=== PATIENT | female | born 1990 ===

== ENCOUNTER 2020-04-13 15:22 | Outpatient (REF) | payer OTHER, SELFPAY | END 2020-04-13 15:23 | disposition home or self-care (01) | LOC: HO.LAB 15:22 | PROVIDERS: Visit Provider Internal Medicine | DX: Z20.828 Contact with and (suspected) exposure to other viral communicable diseases (principal) | CPT/HCPCS: C9803; U0003 ==

== ENCOUNTER 2020-05-24 10:56 | Emergency (ER) | payer OTHER, SELFPAY ==
[2020-05-24 11:11] VITALS: BP 107/64; PULSE 83; RESP 18; TEMP 36.3; O2SAT 98; BMI 29.7
--- NOTE | 2020-05-24 11:48 | ED_ITS ---
HPI - Extremity Injury (Lower) General Chief Complaint: Extremity Injury, Lower Stated Complaint: leg pain and a personal issue Time Seen by Provider: 05/24/20 11:37 Source: patient Mode of arrival: ambulatory Limitations: no limitations History of Present Illness HPI Narrative: 29-year-old female here with right lower extremity pain, swelling, redness. The patient denies any injury or trauma. She tells me she w hunter up yesterday morning and noticed that her right lower extremity was red, painful and swollen. No fevers or chills. Also complaining of a bump to the vagina which is painful and swollen. No vaginal discharge, abdominal cramping or urinary symptoms. MD complaint: other (Leg pain) Onset (ago): day(s) (Two days) Severity: mild Relieving factors: nothing Exacerbating factors: nothing Other symptoms: none Related Data Previous Rx's Medication Instructions Recorded doxycycline monohydrate 100 mg PO BID #21 cap 05/24/20 ibuprofen 600 mg PO TID PRN #20 tab 05/24/20 Allergies Allergy/AdvReac Type Severity Reaction Status Date / Time dextroamphetamine Allergy Unknown THROAT Verified 05/24/20 11:10 [From ADDERALL] CLOSES/SWELLING methylphenidate Allergy Unknown SWELLING Verified 05/24/20 11:10 [From CONCERTA] From ADDERALL Allergy Unknown THROAT Uncoded 02/04/20 16:37 CLOSES/SWELLING From RITALIN Allergy Unknown THROAT Uncoded 02/04/20 16:37 CLOSES/SWELLING PICKLES Allergy Unknown UNKNOWN Uncoded 02/04/20 16:37 Review of Systems Review of Systems: Yes all other systems are reviewed and are negative Constitutional: Constitutional: Reports no additional constitutional complaints, Denies body ache(s), Denies chills, Denies fever(s), Denies headache(s) and Denies weakness Eyes: Eyes: Reports no additional eye complaints and Denies change in vision ENT: Reports system reviewed and no additional complaints, except as documented, Denies dizziness, Denies headache(s), Denies nasal congestion, Denies nasal discharge and Denies neck pain Cardiovascular: Cardiovascular: Reports no additional cardiovascular complaints, Denies chest pain, Denies leg edema and Denies dyspnea Respiratory: Respiratory: Reports no additional respiratory complaints, Denies cough and Denies dyspnea Gastrointestinal: Gastrointestinal: Reports no additional gastrointestinal complaints, Denies abdominal pain, Denies diarrhea, Denies nausea and Denies vomiting Genitourinary: Genitourinary: Reports no additional female genitourinary complaints and Denies urinary incontinence Comments: Vaginal lesion Musculoskeletal: Musculoskeletal: Reports no additional musculoskeletal complaints, Denies back pain, Reports arthralgias, Denies joint swelling, Denies neck pain, Denies numbness and Denies tingling Integumentary/Breasts: Skin/Breast: Reports system reviewed and no additional complaints, except as docu and Denies rash Neurologic: Reports system reviewed and no additional complaints, except as documented, Denies Abnormal speech present, Denies dizziness, Denies headache(s), Denies numbness, Denies tingling and Denies weakness FOR[facility]LY [facility], [facility] Past Medical History Attestation statement: The following information was validated with the patient. Source: old records reviewed and nursing notes reviewed Surgical History Hx of appendectomy Social History Social History Advance Directives: No Advance Directives Information Provided: Yes Physical Exam Vital Signs: Vital Signs: Last Vital Signs Temp 97.3 F 05/24/20 11:11 Pulse 83 05/24/20 11:11 Resp 18 05/24/20 11:11 BP 107/64 05/24/20 11:11 Pulse Ox 98 05/24/20 11:11 Body Mass Index 29.7 Const: General: cooperative, healthy appearing, comfortable and no acute distress Orientation/consciousness: patient oriented x3 Limitations: no limitations HENMT: Head: Yes normal to inspection Ears: hearing grossly normal bilaterally General nose exam: Normal external nose present Face and sinus: Yes normal facial exam Mouth: Normal oral and palatal mucosa present Throat: Yes posterior oropharynx normal Eyes: General: appearance normal, both eyes and all related structures Pupils: Equal, round and reactive pupils present Neck: Neck: Yes normal visual inspection Chest: Chest palpation & inspection: normal inspection of the chest Resp: Effort & Inspection: normal respiratory effort Auscultation: clear to auscultation bilaterally Cardio: Rate: regular rate Rhythm: regular rhythm Peripheral pulses: Peripheral pulses 2+ throughout GI: Inspection: Yes normal to inspection Palpation (GI): Soft to palpation and nontender Auscultation: normal bowel sounds : Other: Over the left mons pubis there is a small raised lesion which is fluctuant and painful less than 2 mm. There is some pointing. Back/Spine/Pelvis: Thoracic/Lumbar Spine: thoracic and lumbar spine normal to inspection Skin: General skin exam: no rashes or lesions noted Neuro: General: patient oriented x3, no focal motor deficits and normal sensation to monofilament Cranial nerves: Yes Equal, round and reactive pupils present Cognition (Neuro): normal cognition Speech: No Abnormal speech present Gait exam (Neuro): Normal gait present Motor exam (neuro): 5/5 motor strength present throughout Extrem: Other: To the distal anterior right lower extremity there is an area of erythema with warmth and tenderness. It is not circumferential. The patient also has tenderness over the right posterior calf with some mild swelling. Neurovascular intact distally. Normal cap refill distally. General: Yes normal to inspection Course Course Course Narrative: Right lower extremity swelling, redness, warmth x2 days. No injury or trauma. Will tenderness over the right calf as well. Will check ultrasound to rule out DVT and x-rays. 1340-ultrasound negative for DVT. X-ray showed no acute abnormality. Likely some mild cellulitis. Discussed placing the patient on a short course of antibiotics. She also has ingrown hair. We discussed warm compresses and that the antibiotics will help. No need I and D at this point. Reviewed worrisome signs and symptoms and when to return to the emergency department. Comfortable discharge home. MDM - Extremity Injury (Lower) Medical Records Attestation: I reviewed the patient's medical records. Lab Data Attestation: I reviewed the patient's lab results. Imaging Data tibia/fibula: Attestation: I personally reviewed and interpreted this imaging study as follows: Radiologist's impression: EXAMINATION: XR TIBIA AND FIBULA, RIGHT CLINICAL INFORMATION: Swelling and pain. Rule out fracture. COMPARISON: None TECHNIQUE: AP and lateral views of the right tibia and fibula were obtained. FINDINGS: The bones and soft tissues are normal. No fracture. No osseous lesions. XR/XR tibia fibula RT 2V IMPRESSION: Normal right tibia and fibula. Discharge Plan Discharge Clinical Impression: Ingrown hair Cellulitis Qualifiers: Site of cellulitis: extremity Site of cellulitis of extremity: lower extremity Laterality: right Qualified Code(s): L03.115 - Cellulitis of right lower limb Patient Disposition: Home, Self-Care Instructions: Cellulitis (ED), Abscess (ED) Additional Instructions: Warm compresses 4 times daily Prescriptions: New doxycycline monohydrate 100 mg capsule 100 mg PO BID Qty: 21 RF: 0 ibuprofen 600 mg tablet 600 mg PO TID PRN (Reason: fever or pain) Qty: 20 RF: 0 Referrals: Physician,None [Primary Care Provider] - 2 days Stand Alone Forms: Work/School Release Interventions: ED Discharge Assessment Last Done: 05/24/20 13:33 Discharge Date/Time: 05/24/20 13:33
--- NOTE | 2020-05-24 11:48 | US_ITS ---
EXAMINATION: US VENOUS ULTRASOUND WITH DOPPLER LOWER EXTREMITY, RIGHT CLINICAL INFORMATION: Redness, pain and swelling COMPARISON: None TECHNIQUE: Ultrasound of the deep veins is performed from the hip to the calf with compression sonography and color and pulse Doppler assessment. Spectral analysis with color-flow imaging is performed. FINDINGS: There is normal venous compression and respiratory variation and augmented flow. The visualized common femoral vein, superficial femoral vein, profunda femoral vein, popliteal vein, and the trifurcation region shows no evidence of deep venous thrombosis. There is no significant popliteal fossa cyst. US/US venous duplex LE RT IMPRESSION: No DVT demonstrated in the right lower extremity.
== END 2020-05-24 13:33 | disposition home or self-care (01) ==
PROVIDERS: Emergency Provider Emergency Medicine
DX: M79.661 Pain in right lower leg (principal); L73.1 Pseudofolliculitis barbae; L03.115 Cellulitis of right lower limb
CPT/HCPCS: 73590; 93971; 99283

== ENCOUNTER 2020-06-10 09:16 | Outpatient (REF) | payer OTHER, SELFPAY | END 2020-06-10 09:17 | disposition home or self-care (01) | LOC: HO.LAB 09:16 | PROVIDERS: Visit Provider Internal Medicine | DX: Z20.822 Contact with and (suspected) exposure to COVID-19 (principal) | CPT/HCPCS: 36415; C9803; U0003 ==

== ENCOUNTER 2020-07-20 08:04 | Emergency (ER) | payer OTHER, SELFPAY ==
[2020-07-20 08:07] VITALS: BP 133/67; PULSE 76; RESP 16; TEMP 37.2; O2SAT 100; BMI 31.3
--- NOTE | 2020-07-20 08:29 | ED_ITS ---
HPI - URI/Sore Throat General Chief Complaint: Upper Respiratory Symptoms Stated Complaint: flu like symptoms Time Seen by Provider: 07/20/20 08:29 Source: patient Mode of arrival: ambulatory Limitations: no limitations History of Present Illness MD elicited complaint: fever and other (body aches) Onset (ago): day(s) (4) Consistency: constant Severity: mild Description of mucous: clear Able to tolerate fluids by mouth: Yes Exacerbating factors: nothing Relieving factors: nothing Context: sick contacts (went to the [place]) Associated symptoms: fever, chills, myalgias and headache Treatments prior to arrival: none Related Data Previous Rx's Medication Instructions Recorded doxycycline monohydrate 100 mg PO BID #21 cap 05/24/20 ibuprofen 600 mg PO TID PRN #20 tab 05/24/20 Allergies Allergy/AdvReac Type Severity Reaction Status Date / Time dextroamphetamine Allergy Unknown THROAT Verified 05/24/20 11:10 [From ADDERALL] CLOSES/SWELLING methylphenidate Allergy Unknown SWELLING Verified 05/24/20 11:10 [From CONCERTA] From ADDERALL Allergy Unknown THROAT Uncoded 02/04/20 16:37 CLOSES/SWELLING From RITALIN Allergy Unknown THROAT Uncoded 02/04/20 16:37 CLOSES/SWELLING PICKLES Allergy Unknown UNKNOWN Uncoded 02/04/20 16:37 Review of Systems Review of Systems: Constitutional : positive Fever, positive Chills, positive fatigue, positive Malaise ENT/Mouth : no sore throat, positive runny nose Eyes: No Discharge Cardiovascular : No Chest Pain, No SOB Respiratory : No Cough, No Sputum Gastrointestinal : No Nausea, No Vomiting, No Diarrhea Genitourinary : No Dysuria, No Urinary Frequency Musculoskeletal : positive Myalgia Skin : No rash Neuro : No Headache PMFSH Past Medical History Attestation statement: The following information was validated with the patient. Medical History (Updated 07/20/20 @ 08:38 by Micaela Burrell DO) No active medical problems Surgical History Hx of appendectomy Social History Social History (Updated 07/20/20 @ 08:38 by Micaela Burrell DO) Smoking Status: Current some day smoker Advance Directives: No Advance Directives Information Provided: No Physical Exam Vital Signs: Vital Signs: Last Vital Signs Temp 99 F 03/03/21 08:07 Pulse 76 07/20/20 08:07 Resp 16 07/20/20 08:07 BP 133/67 07/20/20 08:07 Pulse Ox 100 07/20/20 08:07 Body Mass Index 31.3 Appearance: Alert. Oriented X3. No acute distress. Eyes: Pupils equal, round and reactive to light. ENT: Pharynx normal. Neck: Normal inspection. Neck supple. CVS: Normal heart rate and rhythm. Pulses normal. Respiratory: No respiratory distress. Breath sounds normal. Abdomen: Soft and nontender. Skin: Skin warm and dry. Normal skin color. Normal skin turgor. Extremities: No lower extremity edema. Neuro: Oriented X 3. No motor deficit. No sensory deficit. Course Course Course Narrative: patient made awareof test result MDM - URI/Sore Throat MDM Narrative Medical decision making narrative: 29 yo female not toxic, clear lungs, presents with viral syndrome no hypoxia, will test for COVID and given precautions to return. Lab Data Labs: Lab Results 07/20/20 Range/Units 08:28 Coronavirus (PCR) NEGATIVE (Negative) Influenza Type A (PCR) NEGATIVE (Negative) Influenza Type B (PCR) NEGATIVE (Negative) RSV RNA Qual (PCR) NEGATIVE (Negative) Discharge Plan Discharge Clinical Impression: Viral infection Patient Disposition: Home, Self-Care Instructions: Viral Syndrome (ED) Additional Instructions: return to ED for any worsening symptoms or concerns IF YOU CANNOT WALK TO YOUR BATHROOM BECAUSE YOU ARE SO SHORT OF BREATH PLEASE RETURN. Prescriptions: No Action doxycycline monohydrate 100 mg capsule 100 mg PO BID Qty: 21 RF: 0 ibuprofen 600 mg tablet 600 mg PO TID PRN (Reason: fever or pain) Qty: 20 RF: 0 Stand Alone Forms: Work/School Release Interventions: ED Discharge Assessment Last Done: 07/20/20 08:51 Discharge Date/Time: 07/20/20 08:53
[2020-07-20 09:24] LABS: Influenza A PCR NEGATIVE (Negative); Influenza B PCR NEGATIVE (Negative); Resp Syncy Virus RNA Qual PCR NEGATIVE (Negative); SARS COV2 PCR INHOUSE NEGATIVE (Negative)
== END 2020-07-20 08:53 | disposition home or self-care (01) ==
PROVIDERS: Emergency Provider Emergency Medicine
DX: B34.9 Viral infection, unspecified (principal); Z20.822 Contact with and (suspected) exposure to COVID-19; F17.200 Nicotine dependence, unspecified, uncomplicated
CPT/HCPCS: 0241U; 36415; 99282; 99283

== ENCOUNTER 2020-08-17 10:30 | Outpatient (REF) | payer OTHER, SELFPAY ==
[2020-08-17 15:36] LABS: CT PCR NOT DETECTED (Not Detect.); NG PCR NOT DETECTED (Not Detect.)
[2020-08-18 14:30] LABS: BV Int Neg Control Negative (Negative); BV Int Pos Control Positive (Positive)
== END 2020-08-17 10:31 | disposition home or self-care (01) ==
LOC: HO.LAB 10:30
PROVIDERS: Visit Provider Advanced Practice Midwife
DX: N73.9 Female pelvic inflammatory disease, unspecified (principal); R10.9 Unspecified abdominal pain; M54.2 Cervicalgia; Z32.02 Encounter for pregnancy test, result negative; Z20.2 Contact with and (suspected) exposure to infections with a predominantly sexual mode of transmission
CPT/HCPCS: 81025; 87480; 87491; 87510; 87591; 87660; 96372; 99202; J0696

== ENCOUNTER → 2020-10-11 10:56 | Outpatient (BNVA) | payer OTHER, SELFPAY | PROVIDERS: Visit Provider Advanced Practice Midwife ==

== ENCOUNTER → 2020-10-12 13:35 | Outpatient (BNVA) | payer OTHER, SELFPAY | PROVIDERS: Visit Provider Advanced Practice Midwife | DX: Z30.46 Encounter for surveillance of implantable subdermal contraceptive (principal); Z30.011 Encounter for initial prescription of contraceptive pills | CPT/HCPCS: 11982 ==

== ENCOUNTER 2020-11-25 12:08 | Emergency (ER) | payer OTHER, SELFPAY ==
--- NOTE | ~2020-11-25 | XR_ITS ---
EXAMINATION: XR KNEE, RIGHT CLINICAL INFORMATION: Trauma, pain COMPARISON: Radiographs right lower leg 05/24/2020. TECHNIQUE: Four views of the right knee. FINDINGS: There is no fracture or dislocation or destructive process. No suprapatellar effusion. Hoffa's fat pad appears normal. There is no joint narrowing or erosive change or chondrocalcinosis. XR/XR knee RT 4V IMPRESSION: Normal right knee.
[2020-11-25 12:20] VITALS: BP 128/60; PULSE 70; RESP 16; TEMP 36.7; O2SAT 99; BMI 31.3
--- NOTE | 2020-11-25 12:36 | ED_ITS ---
HPI - Extremity Injury (Lower) General Chief Complaint: Extremity Injury, Lower Stated Complaint: FELL AT WORK Time Seen by Provider: 11/25/20 12:27 Source: patient Mode of arrival: ambulatory Limitations: no limitations History of Present Illness HPI Narrative: 29 yo female presenting to the ER with right knee pain for the last 1 week, worse today after she slipped and fell directly onto her knee while at work this morning. She reports last week she woke up with some right knee pain and swelling, without known injury. 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 She has had issues with her right knee since her had an injury and surgery with rods several years ago. She also reports history of lower leg cellulitis of her right leg about 6 months ago. She denies redness or warmth of her knee joint. No fever or chills. complaint: knee injury Onset (ago): day(s) Injury: Right: knee Type of Injury: blunt Place: work Severity: moderate Relieving factors: NSAID, immobilization and rest Exacerbating factors: weight bearing, movement and palpation Context: fall Associated symptoms: swelling and able to partially bear weight Other symptoms: none Treatments prior to arrival: cold therapy and NSAIDS Related Data Previous Rx's Medication Instructions Recorded doxycycline monohydrate 100 mg PO BID #21 cap 05/24/20 doxycycline hyclate 100 mg capsule 100 mg PO BID #28 cap 08/17/20 ibuprofen 600 mg tablet 600 mg PO TID PRN #30 tab 08/17/20 metronidazole 500 mg tablet 500 mg PO Q12H #28 tab 08/17/20 norethindrone (contraceptive) 0.35 0.35 mg PO DAILY 30 Days #30 tab 10/12/20 mg tablet naproxen 500 mg PO BID PRN #20 tab 11/25/20 Allergies Allergy/AdvReac Type Severity Reaction Status Date / Time dextroamphetamine Allergy Unknown THROAT Verified 11/25/20 12:25 [From ADDERALL] CLOSES/SWELLING methylphenidate Allergy Unknown SWELLING Verified 11/25/20 12:25 [From CONCERTA] From ADDERALL Allergy Unknown THROAT Uncoded 11/25/20 12:25 CLOSES/SWELLING From RITALIN Allergy Unknown THROAT Uncoded 11/25/20 12:25 CLOSES/SWELLING PICKLES Allergy Unknown UNKNOWN Uncoded 11/25/20 12:25 Review of Systems Review of Systems: Constitutional: No Fever, No Chills Gastrointestinal: No Nausea, No Vomiting Musculoskeletal: + joint pain, No Myalgias Skin: No Skin Lesions, No rash Neuro: No Weakness, No Numbness Heme/Lymph: No Bruising, No Lymphadenopathy PMFSH Past Medical History Attestation statement: The following information was validated with the patient. Medical History Migraines No active medical problems Surgical History Hx of appendectomy Social History Social History Alcohol intake: current Alcohol intake frequency: a few times a week Advance Directives: Yes Advance Directives Information Provided: Yes Advance Directives on File: No Patient : No Gender identity: female Physical Exam Vital Signs: Vital Signs: Last Vital Signs Temp 98.1 F 11/25/20 12:20 Pulse 70 11/25/20 12:20 Resp 16 11/25/20 12:20 BP 128/60 11/25/20 12:20 Pulse Ox 99 11/25/20 12:20 Body Mass Index 31.3 Appearance: Alert. Oriented X3. No acute distress. HEENT: normal inspection CVS: Normal heart rate and rhythm. Pulses normal. Respiratory: No respiratory distress. Skin: Skin warm and dry. Normal skin color. Normal skin turgor. No rashes. Extremities: right knee with mild generalized swelling, no ertyhema or warmth, well healed scar to the lateral proximal aspect of the knee. normal palpation of the patella. Tender in the suprapatellar region. No patellar tendon tenderness or tibila tuberosity tenderness. Pain with flexion beyond 90 degrees. No joint laxiety appreciated, negative anterior drawer test. Neuro: Oriented X 3. No motor deficit. No sensory deficit. Ambulates with a slight limp Course Course Course Narrative: 29 y/o female presenting with right knee pain x6 days, worse today after she fell onto it at work today. Hx injury and trauma to this knee in the past and has had flare up of pains on/off for a long time. XR pending, doubt acute fracture, no palpable effusion on exam. No signs of infection. Reevaluation(s) Reevaluation #1: XR of the right knee is normal. Placed in ARACELI wrap for support/compression. Will provide crutches, Ortho referral, NSAID and work note. Patient is stable for discharge with outpatient follow up. Critical Care Time Critical Care Time Critical Care Time: No Discharge Plan Discharge Clinical Impression: Knee pain Qualifiers: Chronicity: acute Laterality: right Qualified Code(s): M25.561 - Pain in right knee Patient Disposition: Home, Self-Care Instructions: Swollen Knee Joint (ED), Knee Pain (ED) Additional Instructions: Your x-ray today was normal. Recommend rest, icing several times per day and elevating your knee when possible. Stay off of it for the next 2 days and use crutches. Wear the araceli wrap as needed for compression and support. Take prescribed anti-inflammatory medication as needed for pain and swelling. Recommend following up with patient account specialist next week for further evaluation. Prescriptions: New naproxen 500 mg tablet 500 mg PO BID PRN (Reason: pain) Qty: 20 RF: 0 No Action doxycycline monohydrate 100 mg capsule 100 mg PO BID Qty: 21 RF: 0 norethindrone (contraceptive) [Dayan] 0.35 mg tablet 0.35 mg PO DAILY 30 Days Qty: 30 RF: 3 metronidazole [Flagyl] 500 mg tablet 500 mg PO Q12H Qty: 28 RF: 0 doxycycline hyclate 100 mg capsule 100 mg PO BID Qty: 28 RF: 0 ibuprofen 600 mg tablet 600 mg PO TID PRN (Reason: fever or pain) Qty: 30 RF: 0 Referrals: Bonifacio Sheikh MD [Physician] - 3 days (acute on chronic right knee pain) Stand Alone Forms: Work/School Release
== END 2020-11-25 13:37 | disposition home or self-care (01) ==
PROVIDERS: Emergency Provider Emergency Medicine
DX: M25.561 Pain in right knee (principal); M25.461 Effusion, right knee; Z79.899 Other long term (current) drug therapy
CPT/HCPCS: 73564; 99283

== ENCOUNTER 2021-01-10 10:07 | Outpatient (REF) | payer OTHER, SELFPAY | END 2021-01-10 10:08 | disposition home or self-care (01) | LOC: HO.LAB 10:07 | PROVIDERS: Visit Provider Internal Medicine | DX: Z20.822 Contact with and (suspected) exposure to COVID-19 (principal) | CPT/HCPCS: C9803; U0003; U0005 ==

== ENCOUNTER 2021-03-16 08:50 | Outpatient (REF) | payer OTHER, SELFPAY ==
[2021-03-16 09:42] LABS: COVID-19 Test Negative (Negative)
== END 2021-03-16 08:51 | disposition home or self-care (01) ==
LOC: HO.LAB 08:50
PROVIDERS: Visit Provider Internal Medicine
DX: Z20.822 Contact with and (suspected) exposure to COVID-19 (principal)
CPT/HCPCS: 36415; 87635; C9803

== ENCOUNTER 2021-05-15 11:33 | Outpatient (REF) | payer OTHER, SELFPAY ==
[2021-05-15 14:23] LABS: COVID-19 Test Negative (Negative)
== END 2021-05-15 11:34 | disposition home or self-care (01) ==
LOC: HO.LAB 11:33
PROVIDERS: Visit Provider Internal Medicine
DX: Z20.822 Contact with and (suspected) exposure to COVID-19 (principal)
CPT/HCPCS: 36415; 87635; C9803

== ENCOUNTER 2021-06-23 10:22 | Outpatient (REF) | payer OTHER, SELFPAY ==
--- NOTE | ~2021-06-23 | US_ITS ---
EXAM: Pelvic Ultrasound CLINICAL INDICATION: Irregular menses. Size and dates. COMPARISON: Pelvic ultrasound 01/10/2018 TECHNIQUE: The pelvis was evaluated using transabdominal imaging. FINDINGS: A single intrauterine gestational sac is noted with a single yolk sac and single pole. [place]-rump length of 1.2 cm corresponds with an estimated gestational age of 7 weeks and 3 days. Heart rate measured at 155 bpm. The left ovary measures approximately 2.9 x 2.2 x 2.7 cm and the right ovary measures approximately 2.9 x 2.3 x 1.8 cm. Both ovaries are grossly unremarkable. The small amount of free pelvic fluid adjacent to the right ovary, nonspecific. Prominent vessels are noted particularly within the left adnexa raising the possibility of a retroperitoneal venous malformation. US/US OB <= 14 weeks fetus IMPRESSION: Single intrauterine with an estimated gestational age of 7 weeks and 3 days. This corresponds with estimated due date of 02/06/2022.
[2021-06-23 14:34] LABS: HCG Quantitative 83942 mIU/mL
== END 2021-06-23 10:23 | disposition home or self-care (01) ==
LOC: HO.HMGCX 10:22
PROVIDERS: Visit Provider Advanced Practice Midwife
DX: O20.0 Threatened abortion (principal); Z3A.00 Weeks of gestation of pregnancy not specified
CPT/HCPCS: 36415; 76801; 81025; 84702; 99212

== ENCOUNTER → 2021-07-21 13:36 | Outpatient (BNVA) | payer OTHER, SELFPAY | PROVIDERS: Visit Provider Advanced Practice Midwife | DX: Z13.89 Encounter for screening for other disorder (principal) | CPT/HCPCS: 99212 ==

== ENCOUNTER 2021-08-04 09:29 | Outpatient (REF) | payer OTHER, SELFPAY ==
[2021-08-04 16:52] LABS: CT PCR NOT DETECTED (Not Detect.); NG PCR NOT DETECTED (Not Detect.)
[2021-08-05 14:18] LABS: BV Int Neg Control Negative (Negative); BV Int Pos Control Positive (Positive)
== END 2021-08-04 09:30 | disposition home or self-care (01) ==
LOC: HO.LAB 09:29
PROVIDERS: Visit Provider Advanced Practice Midwife
DX: N89.8 Other specified noninflammatory disorders of vagina (principal); Z20.2 Contact with and (suspected) exposure to infections with a predominantly sexual mode of transmission
CPT/HCPCS: 87480; 87491; 87510; 87591; 87660; 88142

== ENCOUNTER 2021-08-04 09:43 | Outpatient (REF) | payer OTHER, SELFPAY ==
--- NOTE | ~2021-08-04 | US_ITS ---
EXAMINATION: OBSTETRICAL ULTRASOUND, FIRST TRIMESTER HISTORY: 30-year-old at 13.3 weeks of gestation NT screening COMPARISON: 06/23/2021 TECHNIQUE: Real time transabdominal imaging with color and M-mode Doppler. FINDINGS: A single, live IUP CRL of 78.2 mm c/w 13.6wks is noted. Heart Rate: 138 beats per minute. Normal yolk sac seen. NT was 1.7.mm. NB Present The embryo appears sonographically wnl for this GA. Both maternal ovaries are seen and appear normal. GESTATIONAL AGE: 1. Established GA: 13.3 wks 2. GA from AUA: 13.6 wks ESTIMATED DATE OF DELIVERY: 1. Established ERNESTINA: 02/06/2022 2. ERNESTINA from AUA: 02/03/2022 US/US OB 1T nuc measure IMPRESSION: 1. A single live IUP 2. Size equals dates 3. NT of 1.7 mm MFM Consultation: I reviewed the ultrasound findings along with significance of NT measurement. The NT of less than 3mm is generally reassuring. However, the sensitivity for T21 detection is only 60%. I reviewed the availability of serum aneuploidy screening which includes cell-free DNA and placental protein based tests. I discussed the sensitivity, false-positive rate, and other limitations associated with each test. I also reviewed the availability of invasive diagnostic tests that are associated small but definite risk of miscarriage. We also reviewed the differences between screening tests and diagnostic tests. After our discussion, she opted for the First trimester screening that is based on cell-free DNA or non-invasive testing (NIPT). The result will be faxed to your office in approximately 7 days. A follow up at 18 weeks for survey has been scheduled. Thank you very much for this referral. Total time 30 minutes. The time spent was devoted to counseling the patient about the disease and diagnosis, coordinating care including reviewing her records, pertinent lab data and studies, as well as discussing diagnostic evaluation and workup, plan therapeutic interventions and future disposition of care. This includes any additional research needed to obtain further information in formulating the plan of care of this patient. This note was generated with a voice recognition program. Please excuse any errors which may have been overlooked during my review of this note. Sometimes these errors may affect the content or meaning of a given sentence.
== END 2021-08-04 09:44 | disposition home or self-care (01) ==
LOC: HO.US 09:43
PROVIDERS: Visit Provider Advanced Practice Midwife
DX: O21.9 Vomiting of pregnancy, unspecified (principal); O26.851 Spotting complicating pregnancy, first trimester; O99.341 Other mental disorders complicating pregnancy, first trimester; F32.A Depression, unspecified; Z3A.13 13 weeks gestation of pregnancy
CPT/HCPCS: 76813; 81003; 87480; 87491; 87510; 87591; 87660; 88142; 99212

== ENCOUNTER 2021-09-01 09:36 | Outpatient (REF) | payer OTHER, SELFPAY ==
[2021-09-01 11:35] LABS: Hematocrit 35.8 % (37.0-47.0); Hemoglobin 12.2 g/dl (12.0-16.0); Mean Corpuscular HGB Conc 34.1 g/dl (31.0-35.0); Mean Corpuscular Hemoglobin 31.1 pg (27.0-33.0); Mean Corpuscular Volume 91.3 fL (80.0-98.0); Mean Platelet Volume 10.8 fL (9.4-12.3); Platelet Count 227 X10*3/uL (160-400); Red Blood Count 3.92 X10*6/uL (4.20-5.50); Red Cell Distribution Width 12.8 % (11.0-16.0)
[2021-09-01 12:13] LABS: Amphetamine Screen Urine Not Detected (Not Detect); Barbiturates, Urine Not Detected (Not Detect); Benzodiazepines Screen Urine Not Detected (Not Detect); Cannabinoid Screen Urine POSITIVE (Not Detect); Cocaine Screen Urine Not Detected (Not Detect); Fentanyl, urine Not Detected (Not Detect); Opiate Screen Urine Not Detected (Not Detect); Phencyclidine Screen Urine Not Detected (Not Detect)
[2021-09-01 12:30] LABS: Syphilis Screen Nonreactive (Nonreactive)
[2021-09-01 12:41] LABS: Hepatitis B Surface Antigen Negative (Negative); ~HepC Num1 0.07 S/CO (0.00-0.79); ~Hepatitis C Antibody Nonreactive (Nonreactive)
[2021-09-01 13:07] LABS: HIV AB/AG Nonreactive (Nonreactive); HIV Num 1 0.08 S/CO (0.00-0.99)
[2021-09-04 20:42] LABS: Rubella IgG Antibody 1.06 Index
== END 2021-09-01 09:37 | disposition home or self-care (01) ==
LOC: HO.LAB 09:36
PROVIDERS: Visit Provider Advanced Practice Midwife
DX: Z34.92 Encounter for supervision of normal pregnancy, unspecified, second trimester (principal); Z3A.17 17 weeks gestation of pregnancy
CPT/HCPCS: 80307; 81003; 85027; 86762; 86780; 86787; 86803; 86850; 86900; 86901; 87086; 87340; 87389; 99212

== ENCOUNTER 2021-09-15 09:09 | Outpatient (REF) | payer OTHER, SELFPAY ==
--- NOTE | ~2021-09-15 | US_ITS ---
EXAMINATION: US OBSTETRICAL CLINICAL INFORMATION: 31-year-old at 19.3 weeks of gestation Screening for anomaly COMPARISON: 08/04/2021 TECHNIQUE: Real-time transabdominal ultrasound was performed using C1-5 megahertz transducer. FINDINGS: A single, active, fetus is seen in vertex presentation. The placenta is anterior without previa, and the amniotic fluid volume is wnl. MEASUREMENTS: 1. Biparietal Diameter: 4.7 cm; 20.2 wks 2. Occipital Frontal Diameter: 6.3 cm 3. Head Circumference: 17.8 cm; 20.2 wks 4. Abdominal Circumference: 14.5 cm; 19.6 wks 5. Femur Length: 3.3 cm; 20.2 wks 6. Humerus Length: 3.3 cm; 21.3 wks 7. Tibia Length: 2.9 cm; 20.6 wks 8. Ulna Length: 3.1 cm; 21.4 wks 9. Lateral ventricle: 0.72 cm 10. Cerebellum: 2.1 cm; 20.6 wks 11. Cisterna Magna: 0.62 cm 12. Nuchal Fold: 4.3 mm 13. Heart Rate: 143 beats per minute Rt ovary: normal Lt ovary: normal Cervical length 4.0 cm on T/A. GESTATIONAL AGE: 1. Established GA: 19.3 wks 2. GA from [facility]: 20.2 wks ESTIMATED DATE OF DELIVERY: 1. Established ERNESTINA: 02/06/2022 2. ERNESTINA from [facility]: 01/31/2022 ANATOMY: The visualized anatomy includes but not limited to: 1. Cranium: Normal 2. Intracranial anatomy: cavum septum pellucidi, lateral ventricles, choroid plexus, cerebellum, posterior fossa, third and fourth ventricles. 3. face: orbits, lip/palate, profile, nasal bone 4. Heart: four-chamber view of the heart, ventricular septum, foramen ovale, pulmonary vein, left and right outflow tracts, three-vessel view, 3 vessel trachea view, aortic and ductal arches, situs.. 5. Diaphragm: Normal 6. Abdominal wall: Normal 7. Cord Insertion: Normal 8. Spine: Cervical, thoracic, lumbar, sacral. 9. Stomach: Normal size and shape 10. Right Kidney: Normal 11. Left Kidney: Normal 12. 3 vessel cord: Normal 13. Upper extremity: Open hands, fifth digit. 14. Lower extremity: Tibia, fibula, bilateral feet. 15. Bladder: Normal 16. Genitalia: Female, patient aware US/US OB /maternal detail IMPRESSION: 1. Single, living, intrauterine with appropriate biometry. 2. Normal survey DISCUSSION: I reviewed today's ultrasound findings. We discussed the limitations of ultrasound in diagnosing aneuploidy and other congenital abnormalities. I reviewed the differences between screening test and diagnostic test. Amniocentesis was discussed and declined. She was informed that the baseline incidence of congenital abnormalities is approximately 3-5%. Not all these conditions are diagnosable in utero. RECOMMENDATIONS: Follow-up when necessary Thank you for allowing me to participate in her care. Total time 30 minutes. The time spent was devoted to counseling the patient about the disease and diagnosis, coordinating care including reviewing her records, pertinent lab data and studies, as well as discussing diagnostic evaluation and workup, plan therapeutic interventions and future disposition of care. This includes any additional research needed to obtain further information in formulating the plan of care of this patient. This note was generated with a voice recognition program. Please excuse any errors which may have been overlooked during my review of this note. Sometimes these errors may affect the content or meaning of a given sentence.
== END 2021-09-15 09:10 | disposition home or self-care (01) ==
LOC: HO.US 09:09
PROVIDERS: Visit Provider Advanced Practice Midwife
DX: Z34.92 Encounter for supervision of normal pregnancy, unspecified, second trimester (principal); Z36.3 Encounter for antenatal screening for malformations; Z3A.19 19 weeks gestation of pregnancy
CPT/HCPCS: 76811

== ENCOUNTER → 2021-09-29 10:51 | Outpatient (BNVA) | payer OTHER, SELFPAY | PROVIDERS: Visit Provider Advanced Practice Midwife | DX: Z34.82 Encounter for supervision of other normal pregnancy, second trimester (principal); Z3A.21 21 weeks gestation of pregnancy | CPT/HCPCS: 99212 ==

== ENCOUNTER → 2021-10-30 11:38 | Outpatient (BNVA) | payer OTHER, SELFPAY | PROVIDERS: Visit Provider Advanced Practice Midwife | DX: O36.8120 Decreased fetal movements, second trimester, not applicable or unspecified (principal); O36.5920 Maternal care for other known or suspected poor fetal growth, second trimester, not applicable or unspecified; Z3A.25 25 weeks gestation of pregnancy | CPT/HCPCS: 59025; 81003 ==

== ENCOUNTER 2021-10-30 12:21 | Outpatient (REF) | payer OTHER, SELFPAY ==
--- NOTE | ~2021-10-30 | US_ITS ---
EXAMINATION: US OBSTETRICAL FOLLOW UP WITH BIOPHYSICAL PROFILE CLINICAL INFORMATION: Decreased movements. COMPARISON: 09/15/2021 pelvic ultrasound. TECHNIQUE: Real time transabdominal imaging with color and M-mode Doppler. POSITION: Breech. PLACENTA: Anterior. AMNIOTIC FLUID INDEX: 17.4 cm MEASUREMENTS: The initial dating ultrasound dated provided an estimated date of delivery of 02/06/2022. This would project today to a of 02/01/2022. biometric measurements are as follows: Biparietal Diameter: 6.67 cm (27 weeks, 0 days) Occipital Frontal Diameter: 8.67 cm (26 weeks, 5 days) Head Circumference: 24.81 cm (27 weeks, 0 days) Abdominal Circumference: 20.80 cm (25 weeks, 3 days) Femur Length: 4.86 cm (26 weeks, 3 days) The standard deviation for the above measurements is +/- 3 weeks. ESTIMATED WEIGHT: The EFW is 874 grams +/- grams (1 lbs 15 oz +/- oz). This is at the 43 percentile. BIOPHYSICAL PROFILE: Biophysical profile is performed over 30 minutes with assessment of breathing, gross body movement, tone, and qualitative amniotic fluid volume. Each matrix is scored 0 or 2, depending if the metric is present. Maximum total score possible is 8. Motion: 2 Tone: 2 Breathin Amniotic Fluid: 2 Total score: 8 HR: 136 bpm US/US OB follow up IMPRESSION: 1. Single intrauterine gestation in breech position with anterior placenta. 2. EFW: 1 pounds, 15 ounces 3. KATYA: 14.4 cm. 4. BPP score: 8 (scale 0-8).
== END 2021-10-30 12:22 | disposition home or self-care (01) ==
LOC: HO.US 12:21
PROVIDERS: Visit Provider Advanced Practice Midwife
DX: O36.8190 Decreased fetal movements, unspecified trimester, not applicable or unspecified (principal)
CPT/HCPCS: 76816; 99212

== ENCOUNTER → 2021-11-08 08:10 | Outpatient (BNVA) | payer OTHER, SELFPAY | PROVIDERS: Visit Provider Advanced Practice Midwife | DX: Z34.82 Encounter for supervision of other normal pregnancy, second trimester (principal); Z3A.27 27 weeks gestation of pregnancy | CPT/HCPCS: 81003; 99212 ==

== ENCOUNTER 2021-11-17 07:59 | Outpatient (REF) | payer OTHER, SELFPAY ==
[2021-11-17 11:46] LABS: Hematocrit 35.4 % (37.0-47.0); Hemoglobin 11.8 g/dl (12.0-16.0); Mean Corpuscular HGB Conc 33.3 g/dl (31.0-35.0); Mean Corpuscular Hemoglobin 30.8 pg (27.0-33.0); Mean Corpuscular Volume 92.4 fL (80.0-98.0); Mean Platelet Volume 10.5 fL (9.4-12.3); Platelet Count 233 X10*3/uL (160-400); Red Blood Count 3.83 X10*6/uL (4.20-5.50); Red Cell Distribution Width 13.2 % (11.0-16.0)
[2021-11-17 12:03] LABS: Glucose 1 Hour PP 50gm Dose 167 mg/dL (60-140)
[2021-11-17 12:40] LABS: Appearance Urine CLEAR; Color Urine YELLOW; Glucose Urine UA 100 MG/DL (NEG); Leukocyte Esterase Urine NEG (NEG); Nitrite Urine NEG (NEG); Specific Gravity - Urine >= 1.030 (1.005-1.025); UACC Culture Trigger NO; Urine Blood TRACE (NEG); Urine Ketones 15 MG/DL (NEG); Urine Protein NEG (NEG-TRACE)
[2021-11-17 12:42] LABS: Syphilis Screen Nonreactive (Nonreactive)
[2021-11-17 12:57] LABS: Squamous Epithelial Cell Urine 2+ /LPF
[2021-11-17 12:58] LABS: Bacteria Urine TRACE /LPF; RBC Urine 0-2 /HPF (0); WBC Urine 0-2 /HPF (0-4)
== END 2021-11-17 08:00 | disposition home or self-care (01) ==
LOC: HO.LAB 07:59
PROVIDERS: Visit Provider Advanced Practice Midwife
DX: Z34.93 Encounter for supervision of normal pregnancy, unspecified, third trimester (principal); Z20.2 Contact with and (suspected) exposure to infections with a predominantly sexual mode of transmission; Z3A.28 28 weeks gestation of pregnancy
CPT/HCPCS: 36415; 59025; 81001; 85027; 86780; 99212

== ENCOUNTER 2021-11-24 07:13 | Outpatient (REF) | payer OTHER, SELFPAY ==
[2021-11-24 08:16] LABS: Glucose Fasting 91 mg/dL (60-99)
[2021-11-24 09:08] LABS: Glucose 1 Hour 188 mg/dL
[2021-11-24 10:34] LABS: Glucose 2 Hour 169 mg/dL
[2021-11-24 11:27] LABS: Appearance Urine CLEAR; Color Urine YELLOW; Glucose Urine UA 500 MG/DL (NEG); Leukocyte Esterase Urine NEG (NEG); Nitrite Urine NEG (NEG); Specific Gravity - Urine >= 1.030 (1.005-1.025); UACC Culture Trigger NO; Urine Blood TRACE (NEG); Urine Ketones NEG (NEG); Urine Protein NEG (NEG-TRACE)
[2021-11-24 11:47] LABS: Glucose 3 Hour 88 mg/dL
[2021-11-24 12:37] LABS: Squamous Epithelial Cell Urine 2+ /LPF
[2021-11-24 12:38] LABS: Bacteria Urine TRACE /LPF; RBC Urine 0-2 /HPF (0); WBC Urine 0-2 /HPF (0-4)
== END 2021-11-24 07:14 | disposition home or self-care (01) ==
LOC: HO.LAB 07:13
PROVIDERS: Visit Provider Advanced Practice Midwife
DX: O99.810 Abnormal glucose complicating pregnancy (principal); O26.899 Other specified pregnancy related conditions, unspecified trimester; R10.2 Pelvic and perineal pain
CPT/HCPCS: 36415; 81001; 82951

== ENCOUNTER → 2021-12-01 09:49 | Outpatient (BNVA) | payer OTHER, SELFPAY | PROVIDERS: Visit Provider Advanced Practice Midwife | DX: O24.419 Gestational diabetes mellitus in pregnancy, unspecified control (principal); Z3A.30 30 weeks gestation of pregnancy; Z71.89 Other specified counseling | CPT/HCPCS: 99211; 99212 ==

== ENCOUNTER → 2021-12-07 10:39 | Outpatient (BNVA) | payer OTHER, SELFPAY | PROVIDERS: Visit Provider Obstetrics & Gynecology | DX: O24.419 Gestational diabetes mellitus in pregnancy, unspecified control (principal); Z3A.31 31 weeks gestation of pregnancy | CPT/HCPCS: 99212 ==

== ENCOUNTER → 2021-12-14 12:52 | Outpatient (BNVA) | payer OTHER, SELFPAY | PROVIDERS: Visit Provider Obstetrics & Gynecology | DX: O24.419 Gestational diabetes mellitus in pregnancy, unspecified control (principal); Z3A.32 32 weeks gestation of pregnancy | CPT/HCPCS: 59025; 99212 ==

== ENCOUNTER 2021-12-15 09:03 | Outpatient (REF) | payer OTHER, SELFPAY ==
--- NOTE | ~2021-12-15 | US_ITS ---
EXAMINATION: US OBSTETRICAL (BIOPHYSICAL PROFILE) CLINICAL INFORMATION: Gestational diabetes COMPARISON: Previous exams most recent 10/30/2021 TECHNIQUE: Ultrasound of the pelvis is performed. Biophysical profile is performed over 30 minutes with assessment of breathing, gross body movement, tone, and qualitative amniotic fluid volume. Each matrix is scored 0 or 2, depending if the metric is present. Maximum total score possible is 8. Examination is not intended to assess for anomalies. FINDINGS: POSITION: Cephalic PLACENTA: Anterior. Grade 1. AMNIOTIC FLUID INDEX: 16.8 cm CARDIAC ACTIVITY: 138 beats per minute BIOPHYSICAL PROFILE: Motion: 2 Tone: 2 Breathin Amniotic Fluid: 2 Total score: 8 measurements: BPD measures 8.6 cm suggesting gestational age 34 weeks 4 days. OFD measures 10.4 cm suggesting gestational age 32 weeks 5 days. Head circumference measures 31.3 cm suggesting gestational age 35 weeks 1 day. Abdominal circumference measures 31.8 cm suggesting gestational age 35 weeks 5 days. Femur length measures 6.3 cm suggesting gestational age 32 weeks 4 days. From today's measurements weight is estimated at 5 lbs. 8 oz. which is 96 percentile for patient's gestational age. US/US OB biophysical profile IMPRESSION: 1. Single intrauterine gestation in cephalic position with anterior placenta. 2. Total biophysical score is 8 (scale 0-8). 3. Amniotic fluid index 16.8 cm. 4. cardiac activity 138 beats per minute. 5. weight is estimated at 5 lbs. 8 oz. which is 96 percentile for patient's gestational age.
== END 2021-12-15 09:04 | disposition home or self-care (01) ==
LOC: HO.US 09:03
PROVIDERS: Visit Provider Obstetrics & Gynecology
DX: O24.419 Gestational diabetes mellitus in pregnancy, unspecified control (principal)
CPT/HCPCS: 76819

== ENCOUNTER → 2021-12-18 12:53 | Outpatient (BNVA) | payer OTHER, SELFPAY | PROVIDERS: Visit Provider Obstetrics & Gynecology | DX: O24.415 Gestational diabetes mellitus in pregnancy, controlled by oral hypoglycemic drugs (principal); Z3A.32 32 weeks gestation of pregnancy | CPT/HCPCS: 59025; 99212 ==

== ENCOUNTER 2022-12-05 07:33 | Emergency (ER) | payer OTHER, SELFPAY ==
[2022-12-05 07:38] VITALS: BP 122/72; PULSE 65; RESP 72; TEMP 36.7; O2SAT 100; BMI 29.8
--- NOTE | 2022-12-05 07:50 | ED.MEDCLEAR ---
HPI - Medical Clearance General Chief complaint: Medical Clearance Stated complaint: Medical Clearance Time Seen by Provider: 12/05/22 07:50 Source: patient Mode of arrival: ambulatory Limitations: no limitations History of Present Illness HPI Narrative: 31-year-old female presents to the emergency department for evaluation of left eye discharge, redness, started a few days ago, patient tells me kids at home have pink eye she has been using her antibiotics however she ran out. She reports she needs a note to return to work. 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 Pain does not radiate anywhere, worse with movement better at rest. Has not taken anything for it. Patient denies urinary/bowel incontinence/retention, fevers, chills, chest pain, shortness of breath, nausea, vomiting, abdominal pain, chest pain, shortness of breath, no headache, vision changes, dizziness Related Information Previous Rx's Medication Instructions Recorded PNV 153-FA 400 mcg-om3 35 mg-dha 1 tab PO DAILY #30 tabs 08/04/21 25 mg-epa 5 mg-fish oil chew tablet ( Gummies) ferrous sulfate 325 mg (65 mg 325 mg PO DAILY #30 tabs 11/17/21 iron) tablet blood sugar diagnostic (FreeStyle #100 ea 11/29/21 Lite Strips) blood-glucose meter (FreeStyle #1 ea 11/29/21 Lite Meter kit) lancets 28 gauge (FreeStyle #100 ea 11/29/21 Lancets) metformin 500 mg tablet 500 mg PO DAILY #30 tabs 12/14/21 cephalexin 500 mg capsule 500 mg PO BID #20 caps 06/25/22 cyclobenzaprine 10 mg tablet 10 mg PO BEDTIME PRN muscle spasm 12/05/22 #7 tabs erythromycin 5 mg/gram (0.5 %) eye 1 appl ophthalmic (eye) TID 5 days 12/05/22 ointment #3.5 grams lidocaine 5 % topical patch 1 patch topical DAILY PRN pain #15 12/05/22 ea Allergies Allergy/AdvReac Type Severity Reaction Status Date / Time dextroamphetamine Allergy Unknown THROAT Verified 06/25/22 14:14 [From ADDERALL] CLOSES/SWELLING methylphenidate Allergy Unknown SWELLING Verified 06/25/22 14:14 [From CONCERTA] From ADDERALL Allergy Unknown THROAT Uncoded 06/25/22 14:14 CLOSES/SWELLING From RITALIN Allergy Unknown THROAT Uncoded 06/25/22 14:14 CLOSES/SWELLING PICKLES Allergy Unknown UNKNOWN Uncoded 06/25/22 14:14 Review of Systems Review of Systems: Constitutional : No Weight loss, No Fever, No Chills, No Fatigue, No Malaise ENT/Mouth : No sore throat, No Rhinorrhea Eyes: No Eye Pain, No Swelling, No Redness Cardiovascular : No Chest Pain, No SOB, No Dyspnea on Exertion, No Orthopnea, No Edema, No Palpitations Respiratory : No Cough, No Sputum, No Wheezing Gastrointestinal : No Nausea, No Vomiting, No Diarrhea, No Constipation, No abdominal Pain, No Hematochezia, No Melena Genitourinary : No Dysuria, No Urinary Frequency, No Hematuria, Musculoskeletal : No joint pain, No Myalgias, No Joint Swelling Skin : No Skin Lesions, No rash Neuro : No Weakness, No Numbness, No Dizziness, No Headache Psych : No Anxiety/Panic, No Depression All other systems reviewed and are negative Yes all other systems are reviewed and are negative [facility] Past Medical History Attestation statement: The following information was validated with the patient. Source: old records reviewed and nursing notes reviewed Medical History Abnormal glucose tolerance affecting , antepartum Gastrointestinal disorder Migraines Surgical History Hx of appendectomy Family History Family History Maternal Grandmother Diabetes mellitus Maternal Grandfather Diabetes mellitus HTN (hypertension) Cardiac disease Father HTN (hypertension) Social History Social History Household Members: Children Housing: Apartment Are you a primary healthcare corporate account director to a significant other at home: No Do you presently have visiting nurse or other home services: No Alcohol intake: former Patient Tobacco Use Status: Current someday Tobacco user Cigarettes Per Day: 1 Agree to transfusion: Yes Advance Directives: No Advance Directives Information Provided: No service: No Current occupational status: employed 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 Oriented X3.? No acute distress.? Head: Normocephalic, atraumatic, no step-offs or deformities Eyes: Pupils equal, round and reactive to light.?EOMI pain free. Slight conjunctival injection b/l. ENT: Pharynx normal.?? Neck: Normal inspection.? Neck supple.? CVS: Normal heart rate and rhythm.? Pulses normal.? Respiratory: No respiratory distress.? Breath sounds normal.? Abdomen: Soft and nontender.? Skin: Skin warm and dry.? Normal skin color.? Normal skin turgor.? Extremities: No lower extremity edema.? No calf ttp. 5/5 strength to bilateral upper and lower extremities Back: No midline tenderness, no C-spine tenderness, full range of motion, no CVA tenderness bilaterally + TTP to L lumbar paraspinous muscles. Neuro: Oriented X 3.? No motor deficit.? No sensory deficit. CN 2-12 intact . Ambulatory w/ steady gait normal coordination. No saddle paresthesias. Medical Decision Making Medical Decision Making MDM Narrative: 31-year-old female presents for evaluation of bilateral eye redness with discharge, kids at home with pinkeye. Also complaining of left lumbar back pain present for the past few months worsening. Physical exam significant for ?EOMI pain free. Slight conjunctival injection b/l. There is left lumbar paraspinous tenderness. No saddle paresthesias or red flag symptoms. Neuro nonfocal. Patient ambulatory with steady gait normal coordination. Likely lumbar spasm/strain. Unlikely cauda equina, cord compression, epidural abscess. There is concerns for bacterial conjunctivitis. Unlikely acute closed angle glaucoma, wet macular degeneration, periorbital or orbital cellulitis. Plan erythromycin for home, will give cyclobenzaprine and Lidoderm patch and encourage Tylenol and ibuprofen. Educated patient on diagnosis and treatment plan, answered all question, patient verbalizes understanding. At this time patient will be discharged home, advised to return with new or worsening symptoms. Educated on worrisome signs and symptoms and when to return. At this time I feel comfortable discharge home. Differential Diagnosis Differential Diagnoses: The differential diagnosis associated with the presentation includes Likely lumbar spasm/strain. Unlikely cauda equina, cord compression, epidural abscess. There is concerns for bacterial conjunctivitis. Unlikely acute closed angle glaucoma, wet macular degeneration, periorbital or orbital cellulitis. Admission/Observation Consideration of admission/observation: Escalation of care including admission/observation considered Not indicated Prescription Management I considered prescription management with: Antibiotic Core Measures AMI core measures followed: Yes Measure exclusions: not indicated Discharge Plan Discharge Clinical Impression: [place] eye, Lumbar paraspinal muscle spasm Patient Disposition: Home, Self-Care Instructions: Back Pain (ED), Conjunctivitis (ED) Additional Instructions: Take your medications as prescribed. If you were prescribed antibiotics today, it is important that you take your medication to their entirety, do not skip any doses, do not finish them early. Follow-up with your primary care provider this week. Return to the emergency department with new or worsening symptoms. Such as fevers, chills, chest pain, shortness of breath, nausea, vomiting, dizziness, headache, vision changes, lethargy In case of emergency call 911 Your cleared to return to work. Cyclobenzaprine as a muscle relaxer that has been sent to your pharmacy for back discomfort you can take ibuprofen and Tylenol with this. It can make you drowsy do not take with other sedatives or while driving or operating machinery. Do not mix with alcohol. Prescriptions: New cyclobenzaprine 10 mg tablet 10 mg PO BEDTIME PRN (Reason: muscle spasm) Qty: 7 0RF erythromycin 5 mg/gram (0.5 %) ointment 1 appl ophthalmic (eye) TID 5 Days Qty: 3.5 0RF lidocaine 5 % adhesive patch,medicated 1 patch topical DAILY PRN (Reason: pain) Qty: 15 0RF Rx Instructions: leave on most painful area for up to 12 hrs No Action ferrous sulfate 325 mg (65 mg iron) tablet 325 mg PO DAILY Qty: 30 5RF (DME) lancets [FreeStyle Lancets] 28 gauge misc See Rx Instructions .MEDSUPPLY Qty: 100 3RF Rx Instructions: qid (DME) FreeStyle Lite Strips Strip See Rx Instructions .MEDSUPPLY Qty: 100 3RF Rx Instructions: QID (DME) blood-glucose meter [FreeStyle Lite Meter] Kit See Rx Instructions .MEDSUPPLY Qty: 1 0RF Rx Instructions: qid cephalexin 500 mg capsule 500 mg PO BID Qty: 20 0RF Gummies 400 mcg-35 mg- 25 mg-5 mg tablet,chewable 1 tab PO DAILY Qty: 30 11RF metformin 500 mg tablet 500 mg PO DAILY Qty: 30 0RF Rx Instructions: Take 1 tablet in the evening after dinner Referrals: Physician,None [Primary Care Provider] - 2 days Stand Alone Forms: Work/School Release
--- OUTSIDE RECORDS SUMMARY | 2022-12-05 07:52 | XMS_ITS | Continuity of Care Document ---
Author Name Unknown Organization [facility] Address [address] [place] [id number]- Care Team Providers Care Division Operations Manager Name Role Phone Name Vimal HONEYCUTT Primary Care Physician Encounter [facility] Date(s): 06/25/22 - 07/25/[address] [address]- Allergies, Adverse Reactions, Alerts Substance Reaction Severity Status Ritalin Swelling of throat Active Adderall Swelling of throat Active Concerta Swelling of throat Active Other Food Allergy 1 Active 1Pickles Immunizations Given and Recorded Vaccine Date Status Refusal Reason tetanus/diphtheria/pertussis, acel(Tdap) 12/21/21 Given tetanus/diphtheria/pertussis, acel(Tdap) 09/22/15 Given tetanus/diphtheria/pertussis, acel(Tdap) 03/08/15 Recorded SARS-CoV-2 (COVID-19) mRNA BNT-162b2 vac 10/14/20 Recorded SARS-CoV-2 (COVID-19) mRNA BNT-162b2 vac 09/23/20 Recorded Meningococcal Conjugate Vaccine 04/18/09 Recorded Human Papillomavirus Vaccine 09/28/08 Recorded Human Papillomavirus Vaccine 05/06/08 Recorded Human Papillomavirus Vaccine 05/26/07 Recorded tetanus-diphtheria toxoids (Td) 09/12/04 Recorded hepatitis B pediatric vaccine 02/25/98 Recorded hepatitis B pediatric vaccine 04/16/97 Recorded hepatitis B pediatric vaccine 11/09/96 Recorded Measles/Mumps/Rubella Virus Vaccine 02/09/97 Recor ded Measles/Mumps/Rubella Virus Vaccine 04/18/94 Recor ded Diphth/haemophilus/pertussis/tet/polio 02/09/97 Re corded Medications acetaminophen 325 mg oral tablet 650 mg, By Mouth, Every 4 hours, PRN, (1-3), may give 325mg per patient preference and re-dose [id number] within 4 hours, if needed. Patient should only receive a total of 650mg of Acetaminophen every 4 hours., # 25 tablet, Refills 0, Tot. Refills 0... Start Date: 02/01/22 Status: Ordered albuterol CFC free 90 mcg/inh inhalation aerosol 2, puffs, Inhalation, Every 6 hours, PRN, # 8.5 Gm, Refills 0, Tot. Refills 0, Maintenance, 12/21/21 14:52:00 EDT, Aerosol, Route to Pharmacy Electronically, [id number], [facility]/pharmacy #[id number], 170, cm, 12/21/21 14:20:00 EDT, Hei... Start Date: 12/21/21 Stop Date: 01/20/22 Status: Ordered ibuprofen 800 mg oral tablet 800 mg, 1, tablet, By Mouth, Every 8 hours, PRN, (4-6), may give 400mg per patient preference and re-dose with 400mg within 8 hours if needed. Patient should only receive a total of 800mg of Ibuprofen every 8 hours., # 25 tablet, Refills 0, Tot. Ref... Start Date: 02/01/22 Status: Ordered Multivitamins with Folic Acid 1 mg oral tablet 1 tablet, By Mouth, Daily, # 90 tablet, 5 Refills, Maintenance, 11/08/15 10:57:02, Tablet, 1 tabletBy Mouth Daily Start Date: 11/08/15 Status: Ordered Problem List Condition Confirmation Course Effective Dates Status Health St atus Informant Asthma Confirmed Active Bipolar disease, chronic Confirmed 08/04/15 Active Marijuana use Confirmed 08/04/15 Active History of gestational diabetes Confirmed Active Anxiety and depression Confirmed Active Obese class I Confirmed Active Social History Social History Type Response Smoking Status Never (less than 100 in lifetime) entered on: 01/30/22 Sex Patient Care team information Care Team Personnel Name: Vimal Becker MD Position: S Outreach Member Role: PCP Address: Address: [address] [place] [address]- Care Team Related Persons Name: PATITO POLO Address: [id number] Address: [address] [place] [address] [place] Name: KHALIDA AVILA Address: home [address] [place] [address]
== END 2022-12-05 08:26 | disposition home or self-care (01) ==
PROVIDERS: Emergency Provider Emergency Medicine
DX: H10.022 Other mucopurulent conjunctivitis, left eye (principal); M62.830 Muscle spasm of back; M54.50 Low back pain, unspecified; F17.210 Nicotine dependence, cigarettes, uncomplicated
CPT/HCPCS: 99282; 99283